=== PATIENT | male | born 1960 | race African-American/Black ===

== ENCOUNTER 2020-10-29 06:17 | Inpatient (IN) | payer MEDICARE, MEDICAID ==
[~2020-10-29] VITALS: Ht 175.3 cm; Wt 78.2 kg
[2020-10-29] MEDS: BLOOD SUGAR DIAGNOSTIC STRIP TEST SCH (05:30)
[2020-10-29] MEDS ORDERED: FUROSEMIDE 40MG/4ML VIAL IVP ONE (06:30)
[2020-10-29] MEDS ORDERED: NITROGLYCERIN 50MG PREMIX 250 ML IV ONE ×2 (06:45→07:00)
[2020-10-29 06:49] LABS: HEMATOCRIT. 21.8 % (42.0-52.0); MEAN CORPUSCULAR HEMOGLOBIN 24.2 pg (28.0-32.0); MEAN CORPUSCULAR VOLUME 80.6 fL (80.0-94.0); MEAN PLATELET VOLUME 8.7 fl (7.4-10.4); PLATELET 217 x1000/uL (130-400); RED CELL DISTRIBUTION WIDTH 17.8 % (11.6-14.6)
[2020-10-29 06:58] LABS: PROTHROMBIN TIME 10.7 sec (9.6-11.0)
[2020-10-29] MEDS ORDERED: LIDOCAINE HCL/PF 1% 2ML VIAL ONE (07:00)
[2020-10-29 07:01] LABS: CHLORIDE 108 mEq/L (98-107)
[2020-10-29 07:04] LABS: HEMOGLOBIN. 6.5 g/dL (14.0-18.0)
[2020-10-29 07:31] LABS: TOTAL IRON BINDING CAPACITY 283 ug/dL (250-450)
[2020-10-29] MEDS ORDERED: LEVOFLOXACIN 500MG PREMIX 100 ML IV ONE (07:45)
[2020-10-29 09:25] LABS: BG BASE EXCESS -2.9 mmol/L (-2.0-2.0); BG CARBOXYHEMOGLOBIN 0.9 % (0.5-1.5); BG DEOXYHEMOGLOBIN 1.6 % (0.0-5.0); BG HCO3 ACT 21.4 mmol/L (22.0-26.0); BG METHEMOGLOBIN 0.2 % (0.0-1.5); BG OXYGEN SATURATION 98.4 % (92.0-98.5); BG OXYHEMOGLOBIN 97.3 % (94.0-97.0); BG PCO2 34.3 mmHg (35.0-45.0); BG PH 7.413 (7.350-7.450); BG PO2 118.3 mmHg (75.0-100.0); BG SAMPLE SITE RIGHT RADIAL; BG TOTAL HEMOGLOBIN 6.9 g/dL (12.0-18.0); BG VENT MODE MASK - BIPAP
[2020-10-29] MEDS ORDERED: METOPROLOL TARTRATE 25MG TABLET PO NR ×2 (09:30→14:45)
[2020-10-29] MEDS ORDERED: ACETAMINOPHEN 650MG SUPP PR PRN (09:30)
[2020-10-29] MEDS ORDERED: ONDANSETRON HCL 4MG/2ML INJ IV PRN (09:30)
[2020-10-29 10:59] LABS: CLARITY URINE CLEAR (CLEAR); COLOR URINE YELLOW (YELLOW); KETONES URINE NEGATIVE (NEGATIVE); LEUKOCYTE ESTERASE URINE 1+ (NEGATIVE); NITRITE URINE NEGATIVE (NEGATIVE); OCCULT BLOOD URINE TRACE (NEGATIVE); PROTEIN URINE 2+ (NEGATIVE); SPECIFIC GRAVITY URINE 1.011 (1.005-1.030); UROBILINOGEN URINE 0.2 E.U./dL (0.2-1.0)
[2020-10-29] MEDS: PANTOPRAZOLE SODIUM 40 MG/VIAL IV SCH ×2 (11:00→21:00)
[2020-10-29 11:35] LABS: *BARBITURATES SCREEN URINE NEGATIVE (NEGATIVE)
[2020-10-29 11:36] LABS: *AMPHETAMINES SCREEN URINE NEGATIVE (NEGATIVE); *BENZODIAZEPINES SCREEN URINE NEGATIVE (NEGATIVE); *COCAINE SCREEN URINE NEGATIVE (NEGATIVE); METHADONE URINE SCREEN NEGATIVE (NEGATIVE); OPIATES URINE SCREEN NEGATIVE (NEGATIVE); PHENCYCLIDINE URINE SCREEN NEGATIVE (NEGATIVE)
[2020-10-29 11:37] LABS: CANNABINOID URINE SCREEN NEGATIVE (NEGATIVE)
[2020-10-29] MEDS: CEFTRIAXONE 1 G PREMIX 50 ML IV SCH (12:36)
[2020-10-29] MEDS: AZITHROMYCIN 500 MG in DEXT 5% WATER 250 ML IV SCH (12:36)
[2020-10-29 12:37] LABS: PLATELET ESTIMATE NORMAL
[2020-10-29] MEDS ORDERED: NITROGLYCERIN OINT 1GM/INCH UDPKT TD SCH (14:00)
[2020-10-29] MEDS ORDERED: HYDRALAZINE 20MG/ML VIAL IV NR (14:45)
[2020-10-29] MEDS ORDERED: HYDRALAZINE 20MG/ML VIAL IV PRN (14:45)
[2020-10-29] MEDS ORDERED: NITROGLYCERIN 50MG PREMIX 250 ML IV PRN (16:15)
[2020-10-29 16:47] LABS: BG CARBOXYHEMOGLOBIN 0.5 % (0.5-1.5); BG HCO3 ACT 21.2 mmol/L (22.0-26.0); BG METHEMOGLOBIN 0.1 % (0.0-1.5); BG OXYHEMOGLOBIN 98.4 % (94.0-97.0); BG PCO2 33.9 mmHg (35.0-45.0); BG PH 7.415 (7.350-7.450); BG PO2 138.9 mmHg (75.0-100.0); BG SAMPLE SITE RIGHT RADIAL; BG TOTAL HEMOGLOBIN 7.1 g/dL (12.0-18.0); BG VENT MODE MASK - BIPAP
[2020-10-29] MEDS: FUROSEMIDE 40MG/4ML VIAL IVP SCH (17:03)
[2020-10-29 17:13] LABS: CREATINE KINASE MB FRACTION 3.6 ng/mL (0.5-3.6)
[2020-10-29] MEDS ORDERED: DEXTROSE 50% WATER 50ML SYRINGE IV PRN (17:30)
[2020-10-29] MEDS: INSULIN LISPRO 100 UNITS/ML SUBCUT SCH ×2 (18:20→21:00)
[2020-10-29] MEDS: METOPROLOL TARTRATE 50MG TABLET PO SCH (21:00)
[2020-10-29] MEDS ORDERED: METOPROLOL TARTRATE 25MG TABLET PO SCH (21:00)
[2020-10-29] MEDS: HYDRALAZINE HCL 50MG TABLET PO SCH (21:00)
[2020-10-30 00:46] LABS: CREATINE KINASE MB FRACTION 2.3 ng/mL (0.5-3.6)
[2020-10-30] MEDS ORDERED: NITROGLYCERIN 50MG PREMIX 250 ML IV PRN (04:00)
[2020-10-30 04:44] LABS: MEAN CORPUSCULAR HEMOGLOBIN 24.1 pg (28.0-32.0); MEAN CORPUSCULAR VOLUME 77.3 fL (80.0-94.0); MEAN PLATELET VOLUME 8.5 fl (7.4-10.4); PLATELET 131 x1000/uL (130-400); RED BLOOD CELL COUNT 2.32 mill/uL (4.7-6.1); RED CELL DISTRIBUTION WIDTH 17.9 % (11.6-14.6)
[2020-10-30 04:51] LABS: CHLORIDE 108 mEq/L (98-107)
[2020-10-30 05:03] LABS: LDL CHOLESTEROL 38 mg/dL (5-100)
[2020-10-30 05:04] LABS: HDL CHOLESTEROL 95 mg/dL (40-59); T4 FREE 0.98 ng/dL (0.76-1.46)
[2020-10-30 05:11] LABS: HEMOGLOBIN. 5.6 g/dL (14.0-18.0)
[2020-10-30 05:17] LABS: HEPATITIS B SURFACE ANTIGEN NEGATIVE
[2020-10-30 05:47] LABS: HEPATITIS A AB IGM NEGATIVE (NEGATIVE)
[2020-10-30] MEDS: BLOOD SUGAR DIAGNOSTIC STRIP TEST SCH ×4 (06:30→21:23)
[2020-10-30] MEDS: INSULIN LISPRO 100 UNITS/ML SUBCUT SCH ×4 (07:00→21:00)
[2020-10-30] MEDS: PANTOPRAZOLE SODIUM 40 MG/VIAL IV SCH ×2 (08:14→20:10)
[2020-10-30] MEDS: FUROSEMIDE 40MG/4ML VIAL IVP SCH (08:14)
[2020-10-30] MEDS: METOPROLOL TARTRATE 50MG TABLET PO SCH ×2 (08:18→20:10)
[2020-10-30] MEDS: HYDRALAZINE HCL 50MG TABLET PO SCH ×2 (08:18→20:10)
[2020-10-30] MEDS: CEFTRIAXONE 1 G PREMIX 50 ML IV SCH (12:00)
[2020-10-30] MEDS: AZITHROMYCIN 500 MG in DEXT 5% WATER 250 ML IV SCH (12:00)
[2020-10-30] MEDS ORDERED: BISACODYL 5MG TABLET PO PRN (12:45)
[2020-10-30 17:23] LABS: PLATELET ESTIMATE NORMAL
[2020-10-30] MEDS: ACETAMINOPHEN 325MG TABLET PO PRN (20:11)
[2020-10-30] MEDS ORDERED: EPOETIN ALFA-EPBX 10,000 UNIT/ML VIAL SUBCUT NR (21:00)
[2020-10-31] MEDS: ACETAMINOPHEN 325MG TABLET PO PRN ×5 (02:18→21:41)
[2020-10-31 05:20] LABS: MEAN CORPUSCULAR HEMOGLOBIN 24.3 pg (28.0-32.0); MEAN CORPUSCULAR VOLUME 77.6 fL (80.0-94.0); MEAN PLATELET VOLUME 8.8 fl (7.4-10.4); PLATELET 129 x1000/uL (130-400); RED CELL DISTRIBUTION WIDTH 17.8 % (11.6-14.6)
[2020-10-31 06:12] LABS: HEMATOCRIT. 18.6 % (42.0-52.0); HEMOGLOBIN. 5.8 g/dL (14.0-18.0)
[2020-10-31] MEDS: INSULIN LISPRO 100 UNITS/ML SUBCUT SCH ×5 (06:55→21:00)
[2020-10-31] MEDS: BLOOD SUGAR DIAGNOSTIC STRIP TEST SCH ×4 (06:55→21:31)
[2020-10-31] MEDS: FERROUS SULFATE 325MG TABLET PO SCH ×4 (06:55→17:58)
[2020-10-31 08:00] VITALS: BP 158/69
[2020-10-31] MEDS: FOLIC ACID 1MG TABLET PO SCH (09:00)
[2020-10-31] MEDS: POLYETHYLENE GLYCOL 3350 (17GM) 1 DOSE PACK PO SCH (09:00)
[2020-10-31] MEDS: HYDRALAZINE HCL 50MG TABLET PO SCH ×2 (09:26→21:34)
[2020-10-31] MEDS: METOPROLOL TARTRATE 50MG TABLET PO SCH ×2 (09:27→21:34)
[2020-10-31] MEDS: PANTOPRAZOLE SODIUM 40 MG/VIAL IV SCH ×2 (09:27→21:33)
[2020-10-31 12:00] VITALS: BP 144/94
[2020-10-31] MEDS: AZITHROMYCIN 500MG in DEXTROSE 5% WATER 250ML IV SCH ×2 (12:29→12:46)
[2020-10-31] MEDS: CEFTRIAXONE 1,000 MG in DEXTROSE 5% WATER 50 ML IV SCH (12:30)
[2020-10-31 12:34] LABS: PLATELET ESTIMATE NORMAL
[2020-10-31 16:27] VITALS: BP 149/90
[2020-10-31 20:00] VITALS: BP 136/88
[2020-10-31 22:00] VITALS: BP 139/92
[2020-11-01] VITALS (10 sets, daily range): BP systolic 128–163; BP diastolic 76–109
[2020-11-01] MEDS: METHYLPREDNISOLONE SOD SUCC 40 MG/ML VIAL IV SCH ×2 (00:26→08:21)
[2020-11-01 06:25] LABS: MEAN CORPUSCULAR HEMOGLOBIN 24.7 pg (28.0-32.0); MEAN CORPUSCULAR VOLUME 78.7 fL (80.0-94.0); MEAN PLATELET VOLUME 9.4 fl (7.4-10.4); PLATELET 148 x1000/uL (130-400); RED BLOOD CELL COUNT 2.45 mill/uL (4.7-6.1); RED CELL DISTRIBUTION WIDTH 18.1 % (11.6-14.6)
[2020-11-01 07:49] LABS: HEMATOCRIT. 19.3 % (42.0-52.0); HEMOGLOBIN. 6.1 g/dL (14.0-18.0)
[2020-11-01] MEDS: IPRATROPIUM/ALBUTEROL 0.5-3(2.5)MG/3ML NEB HHN SCH ×2 (08:00→14:51)
[2020-11-01] MEDS: INSULIN LISPRO 100 UNITS/ML SUBCUT SCH ×3 (08:00→17:34)
[2020-11-01] MEDS: BLOOD SUGAR DIAGNOSTIC STRIP TEST SCH ×3 (08:17→17:18)
[2020-11-01] MEDS: FOLIC ACID 1MG TABLET PO SCH (08:18)
[2020-11-01] MEDS: FERROUS SULFATE 325MG TABLET PO SCH ×3 (08:18→17:34)
[2020-11-01] MEDS: HYDRALAZINE HCL 50MG TABLET PO SCH (08:19)
[2020-11-01] MEDS: METOPROLOL TARTRATE 50MG TABLET PO SCH (08:20)
[2020-11-01] MEDS: PANTOPRAZOLE SODIUM 40 MG/VIAL IV SCH (08:21)
[2020-11-01] MEDS: POLYETHYLENE GLYCOL 3350 (17GM) 1 DOSE PACK PO SCH (08:24)
[2020-11-01] MEDS ORDERED: FURO-151 MT (12:07)
[2020-11-01] MEDS ORDERED: ALBU90AE INH (12:07)
[2020-11-01] MEDS ORDERED: P20 PO (12:07)
[2020-11-01] MEDS ORDERED: FERR325T23 MT (12:07)
[2020-11-01 12:11] LABS: PLATELET ESTIMATE NORMAL
[2020-11-01] MEDS: CEFTRIAXONE 1,000 MG in DEXTROSE 5% WATER 50 ML IV SCH (12:24)
[2020-11-01 12:33] LABS: BG BASE EXCESS -0.3 mmol/L (-2.0-2.0); BG CARBOXYHEMOGLOBIN 1.6 % (0.5-1.5); BG DEOXYHEMOGLOBIN 2.6 % (0.0-5.0); BG FRACTION INSPIRED OXYGEN 21; BG METHEMOGLOBIN 0.5 % (0.0-1.5); BG OXYGEN SATURATION 97.3 % (92.0-98.5); BG OXYHEMOGLOBIN 95.3 % (94.0-97.0); BG PCO2 31.6 mmHg (35.0-45.0); BG PO2 87.2 mmHg (75.0-100.0); BG TOTAL HEMOGLOBIN 7.4 g/dL (12.0-18.0); BG VENT MODE ROOM AIR
[2020-11-01] MEDS ORDERED: AZITHROMYCIN 500 MG TABLET PO SCH (13:00)
[2020-11-01] MEDS ORDERED: METO-539 MT (15:37)
[2020-11-01] MEDS ORDERED: EPOE10003 SQ (16:37)
[2020-11-01] MEDS ORDERED: EPOETIN ALFA-EPBX 10,000 UNIT/ML VIAL SUBCUT NR (17:25)
== END 2020-11-01 20:10 | disposition home or self-care (01) | DRG 280 ==
LOC: ER 06:17 → EDBEDREQSVC 07:10 → EDBEDREQTM 07:10 → EDBEDREQ 07:10 → MICUSO 08:20 → EDBEDREQTM 08:23 → EDBEDREQ 08:23 → SUPCPDRO 09:18 → EDBEDREQSVC 15:43 → 5EST 10-31 07:40
PROVIDERS: ADMIT Internal Medicine; ATTEND Internal Medicine
PROC: 5A09457 Assistance with Respiratory Ventilation, 24-96 Consecutive Hours, Continuous Positive Airway Pressure (ICD-10-PCS; principal; 2020-10-29)
DX: I13.0 Hypertensive heart and chronic kidney disease with heart failure and stage 1 through stage 4 chronic kidney disease, or unspecified chronic kidney disease (principal); I21.4 Non-ST elevation (NSTEMI) myocardial infarction; J96.01 Acute respiratory failure with hypoxia; J18.9 Pneumonia, unspecified organism; I50.33 Acute on chronic diastolic (congestive) heart failure; E87.2 Acidosis; N17.9 Acute kidney failure, unspecified; N39.0 Urinary tract infection, site not specified; B19.10 Unspecified viral hepatitis B without hepatic coma; K92.2 Gastrointestinal hemorrhage, unspecified; D50.9 Iron deficiency anemia, unspecified; E11.22 Type 2 diabetes mellitus with diabetic chronic kidney disease; E87.5 Hyperkalemia; E88.09 Other disorders of plasma-protein metabolism, not elsewhere classified; F10.10 Alcohol abuse, uncomplicated; E11.65 Type 2 diabetes mellitus with hyperglycemia; K59.00 Constipation, unspecified; I16.0 Hypertensive urgency; N18.30 Chronic kidney disease, stage 3 unspecified; F14.10 Cocaine abuse, uncomplicated; T39.395A Adverse effect of other nonsteroidal anti-inflammatory drugs [NSAID], initial encounter; K76.0 Fatty (change of) liver, not elsewhere classified; Z20.822 Contact with and (suspected) exposure to COVID-19; Z79.899 Other long term (current) drug therapy; Z82.49 Family history of ischemic heart disease and other diseases of the circulatory system; Z91.19 Patient's noncompliance with other medical treatment and regimen; Y92.89 Other specified places as the place of occurrence of the external cause
CPT/HCPCS: 36415; 36600; 71045; 76700; 80048; 80053; 80061; 80305; 81003; 82375; 82550; 82553; 82607; 82728; 82746; 82805; 82962; 83036; 83540; 83550; 83605; 83880; 84145; 84439; 84443; 84484; 85025; 85044; 86705; 86709; 86803; 86850; 86900; 86920; 87077; 87186; 87340; 87426; 93005; 93306; 93970; 94660; 97162; 99291; C9113; J0360; J0456; J0696; J0885; J1815; J1940; J1956; J2405; J2920; J3490; J7060

== ENCOUNTER 2020-11-15 15:37 | Inpatient (IN) | payer MEDICARE, MEDICAID ==
[~2020-11-15] VITALS: Ht 177.8 cm; Wt 90.3 kg
[2020-11-15] VITALS (20 sets, daily range): BP systolic 30–231; BP diastolic 18–151
[~2020-11-15 15:37] MED LIST: ALBU90AE INH; EPOE10003 SQ; FERR325T23 MT; FURO-151 MT; METO-539 MT; P20 PO
[2020-11-15] MEDS ORDERED: NITROGLYCERIN OINT 1GM/INCH UDPKT TD ONE (16:00)
[2020-11-15] MEDS ORDERED: SODIUM CHLORIDE 0.9% 1000ML BAG (SEPSIS BOLUS) IV ONE (16:00)
[2020-11-15] MEDS: NITROGLYCERIN 0.4MG TABLET SL SL PRN ×3 (16:12→16:43)
[2020-11-15 16:16] LABS: CHLORIDE 110 mEq/L (98-107)
[2020-11-15 16:17] LABS: D-DIMER 3.79 mg/L FEU (<0.50); PROTHROMBIN TIME 10.7 sec (9.6-11.0)
[2020-11-15 16:33] LABS: HEMATOCRIT. 25.7 % (42.0-52.0); HEMOGLOBIN. 7.6 g/dL (14.0-18.0); MEAN CORPUSCULAR HEMOGLOBIN 24.3 pg (28.0-32.0); MEAN CORPUSCULAR VOLUME 81.8 fL (80.0-94.0); MEAN PLATELET VOLUME 8.6 fl (7.4-10.4); PLATELET 455 x1000/uL (130-400); RED BLOOD CELL COUNT 3.14 mill/uL (4.7-6.1); RED CELL DISTRIBUTION WIDTH 20.8 % (11.6-14.6)
[2020-11-15 17:12] LABS: PLATELET ESTIMATE INCREASED
[2020-11-15] MEDS ORDERED: ETOMIDATE 2MG/ML 10ML VIAL IV ONE (17:45)
[2020-11-15] MEDS ORDERED: SUCCINYLCHOLINE CHLORIDE 200MG/10ML IV ONE (17:45)
[2020-11-15] MEDS ORDERED: PROPOFOL 10MG/ML 100ML 100 ML IV ONE (17:45)
[2020-11-15 18:10] LABS: CLARITY URINE CLEAR (CLEAR); COLOR URINE YELLOW (YELLOW); KETONES URINE NEGATIVE (NEGATIVE); LEUKOCYTE ESTERASE URINE NEGATIVE (NEGATIVE); NITRITE URINE NEGATIVE (NEGATIVE); OCCULT BLOOD URINE NEGATIVE (NEGATIVE); PH URINE 5.5 (4.5-8.0); PROTEIN URINE 2+ (NEGATIVE); UROBILINOGEN URINE 0.2 E.U./dL (0.2-1.0)
[2020-11-15] MEDS ORDERED: PIPERACILLIN/TAZOBACTAM 3.375GM/50ML PREMIX IV NR (19:00)
[2020-11-15] MEDS ORDERED: VANCOMYCIN 1 G PREMIX 200 ML IV SCH (19:00)
[2020-11-15] MEDS ORDERED: FUROSEMIDE 100MG/10ML VIAL IVP ONE (19:00)
[2020-11-15] MEDS ORDERED: NITROGLYCERIN 50MG PREMIX 250ML IV PRN (19:05)
[2020-11-15] MEDS ORDERED: FENTANYL CITRATE/PF 500 MCG in SODIUM CHLORIDE 0.9% 40 ML IV PRN (20:00)
[2020-11-15] MEDS ORDERED: FENTANYL CITRATE/PF 2,500 MCG in SODIUM CHLORIDE 0.9% 200 ML IV PRN (20:25)
[2020-11-15] MEDS ORDERED: PROPOFOL 10MG/ML 100ML 100 ML IV SCH (20:45)
[2020-11-15] MEDS ORDERED: SODIUM BICARBONATE 8.4% 1 MEQ/ML 50ML SYR IV ONE (21:00)
[2020-11-15] MEDS ORDERED: EPINEPHRINE 0.1MG/ML (1:10,000) 10ML SYR ONE (21:00)
[2020-11-15] MEDS ORDERED: CALCIUM CHLORIDE 1GM/10ML SYR IV ONE (21:00)
[2020-11-15] MEDS ORDERED: NOREPINEPHRINE 8MG/250ML PMX 250 ML IV SCH (21:45)
[2020-11-15] MEDS ORDERED: NOREPINEPHRINE 8 MG in DEXTROSE 5% WATER 250 ML IV PRN (22:00)
[2020-11-15] MEDS ORDERED: EPINEPHRINE 10 MG in SODIUM CHLORIDE 0.9% 240 ML IV PRN (22:15)
[2020-11-15 22:42] LABS: BG BASE EXCESS -10.4 mmol/L (-2.0-2.0); BG CARBOXYHEMOGLOBIN 0.3 % (0.5-1.5); BG DEOXYHEMOGLOBIN 1.1 % (0.0-5.0); BG FRACTION INSPIRED OXYGEN 100; BG HCO3 ACT 19.1 mmol/L (22.0-26.0); BG METHEMOGLOBIN 0.8 % (0.0-1.5); BG OXYGEN SATURATION 98.9 % (92.0-98.5); BG OXYHEMOGLOBIN 97.8 % (94.0-97.0); BG PCO2 63.8 mmHg (35.0-45.0); BG PH 7.095 (7.350-7.450); BG PO2 202.3 mmHg (75.0-100.0); BG SAMPLE SITE RIGHT RADIAL; BG TOTAL HEMOGLOBIN 8.7 g/dL (12.0-18.0); BG VENT MODE VENT - AC
[2020-11-15 23:01] LABS: TOTAL IRON BINDING CAPACITY 392 ug/dL (250-450)
[2020-11-15] MEDS ORDERED: SODIUM BICARBONATE 8.4% 1 MEQ/ML 50ML SYR IV NR (23:30)
[2020-11-16] VITALS (73 sets, daily range): BP systolic 127–192; BP diastolic 80–129
[2020-11-16] MEDS ORDERED: PIPERACILLIN/TAZ 3.375G PREMIX 50 ML IV SCH (00:30)
[2020-11-16] MEDS: PANTOPRAZOLE SODIUM 40 MG/VIAL IV SCH ×2 (00:41→09:40)
[2020-11-16] MEDS: METHYLPREDNISOLONE SOD SUCC 40 MG/ML VIAL IV SCH ×4 (00:41→21:45)
[2020-11-16] MEDS: ASPIRIN 81MG EC TABLET PO SCH ×2 (00:41→09:40)
[2020-11-16] MEDS: FUROSEMIDE 40MG/4ML VIAL IV SCH ×3 (00:41→18:17)
[2020-11-16] MEDS: THIAMINE HCL 100MG TABLET PO SCH ×2 (00:42→09:40)
[2020-11-16] MEDS: AMLODIPINE 10MG TABLET PO SCH ×2 (00:42→09:40)
[2020-11-16] MEDS: PIPERACILLIN/TAZOBACTAM 3.375 G in DEXT 5% WATER 100 ML IV SCH ×2 (03:08→09:40)
[2020-11-16 04:14] LABS: *AMPHETAMINES SCREEN URINE NEGATIVE (NEGATIVE); *BARBITURATES SCREEN URINE NEGATIVE (NEGATIVE); *BENZODIAZEPINES SCREEN URINE NEGATIVE (NEGATIVE); CANNABINOID URINE SCREEN NEGATIVE (NEGATIVE); OPIATES URINE SCREEN NEGATIVE (NEGATIVE); PHENCYCLIDINE URINE SCREEN NEGATIVE (NEGATIVE)
[2020-11-16] MEDS: IPRATROPIUM/ALBUTEROL 0.5-3(2.5)MG/3ML NEB NEB SCH ×5 (04:14→20:00)
[2020-11-16 04:15] LABS: *COCAINE SCREEN URINE NEGATIVE (NEGATIVE); METHADONE URINE SCREEN NEGATIVE (NEGATIVE)
[2020-11-16] MEDS: CLONIDINE 0.1MG TABLET PO PRN (05:23)
[2020-11-16 05:42] LABS: HEMATOCRIT. 27.2 % (42.0-52.0); MEAN CORPUSCULAR HEMOGLOBIN 23.9 pg (28.0-32.0); MEAN CORPUSCULAR VOLUME 81.4 fL (80.0-94.0); MEAN PLATELET VOLUME 8.8 fl (7.4-10.4); PLATELET 304 x1000/uL (130-400); RED BLOOD CELL COUNT 3.34 mill/uL (4.7-6.1); RED CELL DISTRIBUTION WIDTH 20.5 % (11.6-14.6)
[2020-11-16 05:51] LABS: CHLORIDE 108 mEq/L (98-107)
[2020-11-16] MEDS: HYDRALAZINE 20MG/ML VIAL IV PRN ×2 (06:25→18:18)
[2020-11-16 11:55] LABS: PLATELET ESTIMATE NORMAL
[2020-11-16 11:55] LABS: BG BASE EXCESS 2.1 mmol/L (-2.0-2.0); BG CARBOXYHEMOGLOBIN 0.3 % (0.5-1.5); BG DEOXYHEMOGLOBIN 0.2 % (0.0-5.0); BG HCO3 ACT 24.7 mmol/L (22.0-26.0); BG METHEMOGLOBIN 0.3 % (0.0-1.5); BG OXYGEN SATURATION 99.8 % (92.0-98.5); BG OXYHEMOGLOBIN 99.2 % (94.0-97.0); BG PCO2 30.3 mmHg (35.0-45.0); BG PH 7.529 (7.350-7.450); BG PO2 347.8 mmHg (75.0-100.0); BG SAMPLE SITE RIGHT RADIAL; BG TOTAL HEMOGLOBIN 8.1 g/dL (12.0-18.0); BG VENT MODE VENT - AC
[2020-11-16] MEDS ORDERED: MIDAZOLAM HCL 100 MG in SODIUM CHLORIDE 0.9% 80 ML IV PRN (13:30)
[2020-11-16] MEDS ORDERED: FENTANYL CITRATE/PF 1,000 MCG in SODIUM CHLORIDE 0.9% 80 ML IV PRN (13:30)
[2020-11-16] MEDS ORDERED: FENTANYL CITRATE 2,500 MCG in SODIUM CHLORIDE 0.9% 200 ML IV PRN (13:30)
[2020-11-16] MEDS ORDERED: VANCOMYCIN 750 MG PREMIX 150 ML IV NR (15:00)
[2020-11-16 15:25] LABS: BG BASE EXCESS 2.7 mmol/L (-2.0-2.0); BG CARBOXYHEMOGLOBIN 0.6 % (0.5-1.5); BG FRACTION INSPIRED OXYGEN 80; BG METHEMOGLOBIN 0.6 % (0.0-1.5); BG OXYHEMOGLOBIN 98.8 % (94.0-97.0); BG PCO2 29.1 mmHg (35.0-45.0); BG PH 7.552 (7.350-7.450); BG PO2 326.1 mmHg (75.0-100.0); BG SAMPLE SITE RIGHT RADIAL; BG TOTAL HEMOGLOBIN 7.7 g/dL (12.0-18.0); BG TOTAL RESPIRATORY RATE 28 b/min; BG VENT MODE VENT - AC
[2020-11-16] MEDS: NITROGLYCERIN OINT 1GM/INCH UDPKT TD SCH ×3 (18:00→23:34)
[2020-11-16] MEDS: PIPERACILLIN/TAZOBACTAM 2.25 G in DEXTROSE 5% WATER 50 ML IV SCH ×2 (18:17→21:45)
[2020-11-16 18:22] LABS: BG BASE EXCESS 1.9 mmol/L (-2.0-2.0); BG CARBOXYHEMOGLOBIN 0.4 % (0.5-1.5); BG DEOXYHEMOGLOBIN 0.8 % (0.0-5.0); BG FRACTION INSPIRED OXYGEN 60; BG HCO3 ACT 25.6 mmol/L (22.0-26.0); BG METHEMOGLOBIN 0.5 % (0.0-1.5); BG OXYGEN SATURATION 99.2 % (92.0-98.5); BG OXYHEMOGLOBIN 98.3 % (94.0-97.0); BG PCO2 36.1 mmHg (35.0-45.0); BG PH 7.468 (7.350-7.450); BG PO2 173.7 mmHg (75.0-100.0); BG SAMPLE SITE RIGHT RADIAL; BG TOTAL HEMOGLOBIN 8.5 g/dL (12.0-18.0); BG VENT MODE VENT - AC
[2020-11-17] VITALS (88 sets, daily range): BP systolic 104–188; BP diastolic 53–116
[2020-11-17] MEDS: IPRATROPIUM/ALBUTEROL 0.5-3(2.5)MG/3ML NEB NEB SCH ×6 (01:00→22:14)
[2020-11-17] MEDS: PIPERACILLIN/TAZOBACTAM 2.25 G in DEXTROSE 5% WATER 50 ML IV SCH ×3 (03:11→22:26)
[2020-11-17] MEDS: METHYLPREDNISOLONE SOD SUCC 40 MG/ML VIAL IV SCH ×3 (05:25→22:27)
[2020-11-17] MEDS: NITROGLYCERIN OINT 1GM/INCH UDPKT TD SCH ×4 (05:25→23:07)
[2020-11-17] MEDS: FUROSEMIDE 40MG/4ML VIAL IV SCH ×2 (05:26→17:39)
[2020-11-17 06:32] LABS: PHOSPHORUS 6.2 mg/dL (2.5-4.9)
[2020-11-17 06:40] LABS: MEAN CORPUSCULAR HEMOGLOBIN 24.1 pg (28.0-32.0); MEAN CORPUSCULAR VOLUME 78.3 fL (80.0-94.0); MEAN PLATELET VOLUME 9.1 fl (7.4-10.4); PLATELET 254 x1000/uL (130-400); RED BLOOD CELL COUNT 2.69 mill/uL (4.7-6.1); RED CELL DISTRIBUTION WIDTH 20.4 % (11.6-14.6)
[2020-11-17 08:02] LABS: HEMOGLOBIN. 6.5 g/dL (14.0-18.0)
[2020-11-17] MEDS: ASPIRIN 81MG EC TABLET PO SCH (09:27)
[2020-11-17] MEDS: PANTOPRAZOLE SODIUM 40 MG/VIAL IV SCH (09:27)
[2020-11-17] MEDS: THIAMINE HCL 100MG TABLET PO SCH (09:28)
[2020-11-17] MEDS: AMLODIPINE 10MG TABLET PO SCH (09:28)
[2020-11-17] MEDS: CLONIDINE 0.1MG TABLET PO PRN (09:33)
[2020-11-17] MEDS ORDERED: VANCOMYCIN 750 MG PREMIX 150 ML IV SCH (11:00)
[2020-11-17] MEDS: NICARDIPINE 100 MG in SODIUM CHLORIDE 0.9% 60 ML IV PRN ×2 (13:19→22:26)
[2020-11-17 15:15] LABS: BG BASE EXCESS 1.7 mmol/L (-2.0-2.0); BG CARBOXYHEMOGLOBIN 0.7 % (0.5-1.5); BG DEOXYHEMOGLOBIN 0.9 % (0.0-5.0); BG FRACTION INSPIRED OXYGEN 60; BG HCO3 ACT 25.7 mmol/L (22.0-26.0); BG METHEMOGLOBIN 0.5 % (0.0-1.5); BG OXYGEN SATURATION 99.1 % (92.0-98.5); BG OXYHEMOGLOBIN 97.9 % (94.0-97.0); BG PCO2 37.7 mmHg (35.0-45.0); BG PH 7.452 (7.350-7.450); BG PO2 155.9 mmHg (75.0-100.0); BG SAMPLE SITE RIGHT RADIAL; BG TOTAL HEMOGLOBIN 6.8 g/dL (12.0-18.0); BG VENT MODE VENT - AC
[2020-11-17 22:23] LABS: PLATELET ESTIMATE NORMAL
[2020-11-17] MEDS: EPOETIN ALFA-EPBX 10,000 UNIT/ML VIAL SUBCUT SCH (22:28)
[2020-11-18] VITALS (85 sets, daily range): BP systolic 98–124; BP diastolic 43–70
[2020-11-18] MEDS: IPRATROPIUM/ALBUTEROL 0.5-3(2.5)MG/3ML NEB NEB SCH ×6 (01:09→20:19)
[2020-11-18] MEDS: PIPERACILLIN/TAZOBACTAM 2.25 G in DEXTROSE 5% WATER 50 ML IV SCH ×3 (05:22→21:00)
[2020-11-18] MEDS: NITROGLYCERIN OINT 1GM/INCH UDPKT TD SCH ×4 (05:22→23:43)
[2020-11-18] MEDS: FUROSEMIDE 40MG/4ML VIAL IV SCH ×2 (05:22→16:15)
[2020-11-18] MEDS: METHYLPREDNISOLONE SOD SUCC 40 MG/ML VIAL IV SCH ×3 (05:23→21:00)
[2020-11-18 06:22] LABS: MEAN CORPUSCULAR HEMOGLOBIN 23.2 pg (28.0-32.0); MEAN CORPUSCULAR VOLUME 77.5 fL (80.0-94.0); PLATELET 218 x1000/uL (130-400); RED BLOOD CELL COUNT 2.52 mill/uL (4.7-6.1); RED CELL DISTRIBUTION WIDTH 19.8 % (11.6-14.6)
[2020-11-18 06:40] LABS: HEMATOCRIT. 19.5 % (42.0-52.0); HEMOGLOBIN. 5.9 g/dL (14.0-18.0)
[2020-11-18] MEDS: ASPIRIN 81MG EC TABLET PO SCH (08:46)
[2020-11-18] MEDS: PANTOPRAZOLE SODIUM 40 MG/VIAL IV SCH (08:46)
[2020-11-18] MEDS: THIAMINE HCL 100MG TABLET PO SCH (08:46)
[2020-11-18] MEDS: AMLODIPINE 10MG TABLET PO SCH (08:46)
[2020-11-18 11:10] LABS: PLATELET ESTIMATE NORMAL
[2020-11-18] MEDS: NICARDIPINE 100 MG in SODIUM CHLORIDE 0.9% 60 ML IV PRN (14:24)
[2020-11-18] MEDS ORDERED: ACETAMINOPHEN 650MG SUPP PR PRN (16:15)
[2020-11-18] MEDS: ACETAMINOPHEN 325MG TABLET PO PRN (16:16)
[2020-11-18 16:23] LABS: BG CARBOXYHEMOGLOBIN 0.3 % (0.5-1.5); BG DEOXYHEMOGLOBIN 0.7 % (0.0-5.0); BG FRACTION INSPIRED OXYGEN 60; BG HCO3 ACT 23.9 mmol/L (22.0-26.0); BG METHEMOGLOBIN 0.9 % (0.0-1.5); BG OXYGEN SATURATION 99.3 % (92.0-98.5); BG OXYHEMOGLOBIN 98.1 % (94.0-97.0); BG PCO2 30.1 mmHg (35.0-45.0); BG PH 7.517 (7.350-7.450); BG PO2 258.1 mmHg (75.0-100.0); BG SAMPLE SITE RIGHT RADIAL; BG TOTAL HEMOGLOBIN 6.5 g/dL (12.0-18.0); BG VENT MODE VENT - AC
[2020-11-19] VITALS (89 sets, daily range): BP systolic 120–153; BP diastolic 64–84
[2020-11-19] MEDS: IPRATROPIUM/ALBUTEROL 0.5-3(2.5)MG/3ML NEB NEB SCH ×6 (00:19→20:34)
[2020-11-19] MEDS: NITROGLYCERIN OINT 1GM/INCH UDPKT TD SCH ×4 (05:07→23:54)
[2020-11-19] MEDS: METHYLPREDNISOLONE SOD SUCC 40 MG/ML VIAL IV SCH ×3 (05:07→22:04)
[2020-11-19] MEDS: PIPERACILLIN/TAZOBACTAM 2.25 G in DEXTROSE 5% WATER 50 ML IV SCH ×3 (05:08→22:04)
[2020-11-19 06:13] LABS: MEAN CORPUSCULAR HEMOGLOBIN 23.9 pg (28.0-32.0); MEAN PLATELET VOLUME 8.9 fl (7.4-10.4); PLATELET 163 x1000/uL (130-400); RED BLOOD CELL COUNT 2.84 mill/uL (4.7-6.1); RED CELL DISTRIBUTION WIDTH 19.5 % (11.6-14.6)
[2020-11-19 06:42] LABS: HEMATOCRIT. 22.5 % (42.0-52.0); HEMOGLOBIN. 6.8 g/dL (14.0-18.0)
[2020-11-19] MEDS: FUROSEMIDE 40MG/4ML VIAL IV SCH ×2 (07:45→17:43)
[2020-11-19] MEDS: PANTOPRAZOLE SODIUM 40 MG/VIAL IV SCH (08:24)
[2020-11-19] MEDS: ASPIRIN 81MG EC TABLET PO SCH (08:24)
[2020-11-19] MEDS: AMLODIPINE 10MG TABLET PO SCH (08:24)
[2020-11-19] MEDS: THIAMINE HCL 100MG TABLET PO SCH (08:25)
[2020-11-19 10:47] LABS: PLATELET ESTIMATE NORMAL
[2020-11-19 11:27] LABS: BG BASE EXCESS 2.3 mmol/L (-2.0-2.0); BG CARBOXYHEMOGLOBIN 0.3 % (0.5-1.5); BG DEOXYHEMOGLOBIN 0.9 % (0.0-5.0); BG FRACTION INSPIRED OXYGEN 40; BG HCO3 ACT 27.1 mmol/L (22.0-26.0); BG METHEMOGLOBIN 0.4 % (0.0-1.5); BG OXYGEN SATURATION 99.1 % (92.0-98.5); BG OXYHEMOGLOBIN 98.4 % (94.0-97.0); BG PCO2 43.4 mmHg (35.0-45.0); BG PH 7.413 (7.350-7.450); BG PO2 158.1 mmHg (75.0-100.0); BG SAMPLE SITE RIGHT RADIAL; BG TOTAL HEMOGLOBIN 7.4 g/dL (12.0-18.0); BG VENT MODE VENT - AC
[2020-11-19] MEDS ORDERED: VANCOMYCIN 750 MG PREMIX 150 ML IV SCH (12:00)
[2020-11-19] MEDS: EPOETIN ALFA-EPBX 10,000 UNIT/ML VIAL SUBCUT SCH (20:00)
[2020-11-19] MEDS: NICARDIPINE 100 MG in SODIUM CHLORIDE 0.9% 60 ML IV PRN (23:55)
[2020-11-20] VITALS (94 sets, daily range): BP systolic 131–176; BP diastolic 63–82
[2020-11-20] MEDS: IPRATROPIUM/ALBUTEROL 0.5-3(2.5)MG/3ML NEB NEB SCH ×6 (00:35→20:38)
[2020-11-20] MEDS: METHYLPREDNISOLONE SOD SUCC 40 MG/ML VIAL IV SCH ×3 (05:58→21:32)
[2020-11-20] MEDS: PIPERACILLIN/TAZOBACTAM 2.25 G in DEXTROSE 5% WATER 50 ML IV SCH ×3 (05:58→21:43)
[2020-11-20] MEDS: NITROGLYCERIN OINT 1GM/INCH UDPKT TD SCH ×4 (05:59→23:51)
[2020-11-20 07:18] LABS: HEMATOCRIT. 23.9 % (42.0-52.0); MEAN CORPUSCULAR HEMOGLOBIN 22.9 pg (28.0-32.0); MEAN CORPUSCULAR VOLUME 78.9 fL (80.0-94.0); MEAN PLATELET VOLUME 8.9 fl (7.4-10.4); PLATELET 154 x1000/uL (130-400); RED BLOOD CELL COUNT 3.03 mill/uL (4.7-6.1); RED CELL DISTRIBUTION WIDTH 19.7 % (11.6-14.6)
[2020-11-20 07:51] LABS: HEMOGLOBIN. 6.9 g/dL (14.0-18.0)
[2020-11-20] MEDS: ASPIRIN 81MG EC TABLET PO SCH (09:06)
[2020-11-20] MEDS: PANTOPRAZOLE SODIUM 40 MG/VIAL IV SCH (09:06)
[2020-11-20] MEDS: THIAMINE HCL 100MG TABLET PO SCH (09:06)
[2020-11-20] MEDS: FUROSEMIDE 40MG/4ML VIAL IV SCH ×2 (09:06→18:59)
[2020-11-20] MEDS: NICARDIPINE 100 MG in SODIUM CHLORIDE 0.9% 60 ML IV PRN ×2 (09:07→18:59)
[2020-11-20] MEDS: AMLODIPINE 10MG TABLET PO SCH (09:07)
[2020-11-20] MEDS: ACETAMINOPHEN 325MG TABLET PO PRN ×3 (13:55→23:20)
[2020-11-20] MEDS: CLONIDINE 0.1MG TABLET PO PRN (23:21)
[2020-11-21] VITALS (42 sets, daily range): BP systolic 115–169; BP diastolic 60–81
[2020-11-21] MEDS: HYDRALAZINE 20MG/ML VIAL IV PRN (00:44)
[2020-11-21] MEDS: IPRATROPIUM/ALBUTEROL 0.5-3(2.5)MG/3ML NEB NEB SCH ×3 (00:47→09:27)
[2020-11-21] MEDS: NICARDIPINE 100 MG in SODIUM CHLORIDE 0.9% 60 ML IV PRN ×2 (03:08→09:04)
[2020-11-21] MEDS: PIPERACILLIN/TAZOBACTAM 2.25 G in DEXTROSE 5% WATER 50 ML IV SCH (05:42)
[2020-11-21] MEDS: METHYLPREDNISOLONE SOD SUCC 40 MG/ML VIAL IV SCH (06:19)
[2020-11-21] MEDS: NITROGLYCERIN OINT 1GM/INCH UDPKT TD SCH ×2 (06:27→11:31)
[2020-11-21] MEDS: FUROSEMIDE 40MG/4ML VIAL IV SCH (06:44)
[2020-11-21] MEDS: THIAMINE HCL 100MG TABLET PO SCH (08:30)
[2020-11-21] MEDS: ASPIRIN 81MG EC TABLET PO SCH (08:30)
[2020-11-21] MEDS: AMLODIPINE 10MG TABLET PO SCH (08:30)
[2020-11-21] MEDS: PANTOPRAZOLE SODIUM 40 MG/VIAL IV SCH (08:30)
[2020-11-21 09:13] LABS: NUCLEATED RED BLOOD CELLS 1 /100 WBC; PLATELET ESTIMATE NORMAL
[2020-11-21] MEDS ORDERED: MORPHINE SULFATE 2 MG/ML CPJ (NOT FOR IM USE) IV PRN ×2 (11:45→14:30)
[2020-11-21] MEDS ORDERED: MORPHINE SULFATE 2 MG/ML CPJ (NOT FOR IM USE) IV NR (13:30)
[2020-11-21] MEDS ORDERED: LORAZEPAM 2MG/ML CPJ IV PRN (13:30)
[2020-11-21] MEDS ORDERED: LORAZEPAM 2MG/ML CPJ IV NR (13:30)
[2020-11-21] MEDS: MORPHINE SULFATE 100 MG in DEXT 5% WATER 90 ML IV SCH (15:06)
[2020-11-22] VITALS: BP 143/72
[2020-11-22 04:00] VITALS: BP 140/72
[2020-11-22 08:00] VITALS: BP 130/62
[2020-11-22 12:00] VITALS: BP 106/54
[2020-11-22] MEDS: MORPHINE SULFATE 100 MG in DEXT 5% WATER 90 ML IV SCH (14:30)
== END 2020-11-22 15:25 | disposition expired | DRG 870 ==
LOC: ER 15:37 → MICUSO 19:03 → EDBEDREQ 19:06 → EDBEDREQTM 19:06 → ENRESERV 20:28 → 5EST 11-16 11:50 → 6EST 11-21 19:14
PROVIDERS: ADMIT Internal Medicine; ATTEND Internal Medicine
PROC: 5A1955Z Respiratory Ventilation, Greater than 96 Consecutive Hours (ICD-10-PCS; principal; 2020-11-15)
PROC: 06HY33Z Insertion of Infusion Device into Lower Vein, Percutaneous Approach (ICD-10-PCS; 2020-11-15)
PROC: B54CZZA Ultrasonography of Left Lower Extremity Veins, Guidance (ICD-10-PCS; 2020-11-15)
PROC: 5A12012 Performance of Cardiac Output, Single, Manual (ICD-10-PCS; 2020-11-15)
PROC: 5A09357 Assistance with Respiratory Ventilation, Less than 24 Consecutive Hours, Continuous Positive Airway Pressure (ICD-10-PCS; 2020-11-15)
PROC: 0BH17EZ Insertion of Endotracheal Airway into Trachea, Via Natural or Artificial Opening (ICD-10-PCS; 2020-11-15)
PROC: 4A00X4Z Measurement of Central Nervous Electrical Activity, External Approach (ICD-10-PCS; 2020-11-18)
DX: A41.9 Sepsis, unspecified organism (principal); I50.33 Acute on chronic diastolic (congestive) heart failure; J96.01 Acute respiratory failure with hypoxia; J69.0 Pneumonitis due to inhalation of food and vomit; I21.4 Non-ST elevation (NSTEMI) myocardial infarction; E87.2 Acidosis; N17.9 Acute kidney failure, unspecified; Z99.11 Dependence on respirator [ventilator] status; I13.0 Hypertensive heart and chronic kidney disease with heart failure and stage 1 through stage 4 chronic kidney disease, or unspecified chronic kidney disease; G93.1 Anoxic brain damage, not elsewhere classified; I46.9 Cardiac arrest, cause unspecified; D64.9 Anemia, unspecified; K20.90 Esophagitis, unspecified without bleeding; Z20.822 Contact with and (suspected) exposure to COVID-19; F12.90 Cannabis use, unspecified, uncomplicated; K76.0 Fatty (change of) liver, not elsewhere classified; F10.10 Alcohol abuse, uncomplicated; Y90.9 Presence of alcohol in blood, level not specified; F14.10 Cocaine abuse, uncomplicated; Z66 Do not resuscitate; Z51.5 Encounter for palliative care; N18.30 Chronic kidney disease, stage 3 unspecified; E11.22 Type 2 diabetes mellitus with diabetic chronic kidney disease; Z79.84 Long term (current) use of oral hypoglycemic drugs; Z79.899 Other long term (current) drug therapy; Z91.14 Patient's other noncompliance with medication regimen; Z91.19 Patient's noncompliance with other medical treatment and regimen; Z87.891 Personal history of nicotine dependence
CPT/HCPCS: 36415; 36600; 70551; 71045; 78580; 80048; 80053; 80076; 80202; 80305; 81003; 82140; 82375; 82728; 82805; 82962; 83540; 83550; 83605; 83735; 83880; 84100; 84145; 84484; 85025; 85379; 86592; 87070; 93005; 93970; 94002; 94003; 94640; 94660; 95816; 99291; A6261; C9113; J0360; J0885; J1940; J2060; J2270; J2543; J2704; J2920; J3010; J3370; J3490; J7030; J7050; J7060; J7070; U0003